=== PATIENT | male | born 2000 | race Caucasian/White ===

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

== ENCOUNTER 2019-05-30 22:38 | Emergency (ER) | payer OTHER, SELFPAY ==
[2019-05-30 22:43] VITALS: BP 116/101; PULSE 110; RESP 16; TEMP 36.9; O2SAT 98; BMI 41.1
--- NOTE | 2019-05-30 22:52 | DI.RAD.S_ITS ---
PROCEDURE: XR TOE LT MIN 2V INDICATIONS: toe injury TECHNIQUE: 3 views of the left first toe(s) acquired. COMPARISON: None. FINDINGS: Bones: No fractures or dislocations. No suspicious bony lesions. Soft tissues: No suspicious soft tissue densities. IMPRESSION: No acute radiographic findings. If pain persists, repeat imaging in 5-7 days is recommended to exclude occult fracture at the time of the study. Dictated by: Sarah Edmonds M.D. on 05/31/2019 at 6:45 Approved by: Sarah Edmonds M.D. on 05/31/2019 at 6:46
[2019-05-30 23:24] VITALS: PULSE 76
--- NOTE | 2019-05-30 23:59 | ED.LOWEXIN ---
HPI - Extremity Injury (Lower) General Chief Complaint: Extremity Injury, Lower Stated Complaint: big toe left foot injury, also thinks infected Time Seen by Provider: 05/30/19 23:59 Source: patient Mode of arrival: ambulatory Limitations: no limitations History of Present Illness HPI Narrative: The patient is here due to an injury to his left great toe. The toe has been swollen and sore for 2 months. His significant other fell backwards, landed on his foot tonight. There was a scab on the lateral side of the great toenail. After she landed on him, the area ruptured open, there was bleeding. His toe is sore. His says mature other than blood did come out. There is no further drainage from site. There is no injury to the nail itself. Related Data Home Medications Medication Instructions Recorded Confirmed bismuth subsalicylate 262 mg PO Q30M PRN 06/06/18 06/06/18 [Pepto-Bismol] Previous Rx's Medication Instructions Recorded sulfamethoxazole-trimethoprim 1 tab PO Q12H 10 Days #20 tab 05/31/19 [Bactrim DS] Allergies Allergy/AdvReac Type Severity Reaction Status Date / Time No Known Drug Allergies Allergy Verified 12/12/18 22:20 Review of Systems Constitutional Denies chills and Denies fever(s) Musculoskeletal Denies numbness Comments: Left great toe pain/injury. Integumentary/Breasts Comments: Change the left great toe, no rash. Neurologic Denies numbness PFS Medical History (Updated 05/31/19 @ 00:17 by Avelino Max MD) No acute medical problems (Acute) Surgical History (Updated 05/31/19 @ 00:13 by Avelino Max MD) No pertinent past surgical history (Acute) Social History Smoking Status: Never smoker Social History Smoking Status: Never smoker Exam Initial Vital Signs Initial Vital Signs: Vital Signs Temperature 98.4 F 05/30/19 22:43 Pulse Rate 110 H 05/30/19 22:43 Respiratory Rate 16 05/30/19 22:43 Blood Pressure 116/101 H 05/30/19 22:43 Pulse Oximetry 98 05/30/19 22:43 Const General: cooperative, healthy appearing and comfortable Skin Other: No rashes. No skin lesions other than bleeding from the left great toe. Neuro General: alert, awake and oriented x3 Gait: normal gait Motor: muscle tone normal throughout Sensory Exam: no sensory deficits noted Extrem Other: There is no rupture of the left great toe nail bed. There is erythema and swelling to the lateral aspect of the bed, the site were initially bled, consistent with an ingrown toenail. There are no foreign bodies at the site. Course Course Narrative: The patient was started on warm soaks and Septra DS prior to departure tonight. Tetanus was given. The toe injury was soaked in Hibiclens and saline, a clean dressing was placed. Orders Ordered: ED Orders 05/30/19 22:52 XR toe LT min 2V Stat Discontinued Medications Diphtheria/Tetanus/Acell Pertussis (Adacel) 0.5 ml IM .ONCE ONE Stop: 05/31/19 00:41 Last Admin: 05/31/19 00:42 Dose: 0.5 ml Ibuprofen (Advil) 800 mg PO NOW ONE Stop: 05/31/19 00:11 Last Admin: 05/31/19 00:39 Dose: 800 mg Tetanus/Diphtheria Toxoids (Td) 0.5 ml IM .ONCE ONE Stop: 05/31/19 00:35 Last Admin: 05/31/19 00:42 Dose: Not Given Trimethoprim/Sulfamethoxazole (Bactrim Ds) 1 tab PO NOW ONE Stop: 05/31/19 00:11 Last Admin: 05/31/19 00:39 Dose: 1 tab Vital Signs - 8 hr 05/30/19 22:43 05/30/19 23:24 05/31/19 01:12 Temperature 98.4 F Pulse Rate 110 H 80 Pulse Rate [Left Dorsalis Pedis] 76 Respiratory Rate 16 18 Blood Pressure 116/101 H 129/79 Pulse Oximetry 98 100 Discharge Plan Departure Patient Disposition: Home Clinical Impression: Ingrown left greater toenail Discharge Date/Time: 05/31/19 01:12 Interventions: ED Discharge Assessment Last Done: 05/31/19 01:12 Instructions: DI for Ingrown Toenail Activity Restrictions/Additional Instructions: Ibuprofen every 6-8 hours as needed for pain. Bactrim DS 2 times daily for 10 days. Follow up with her doctor in 2 weeks to recheck the toe, return here if necessary. Prescriptions: New sulfamethoxazole-trimethoprim [Bactrim DS] 800-160 mg tablet 1 tab PO Q12H 10 Days Qty: 20 RF: 0 No Action bismuth subsalicylate [Pepto-Bismol] 262 mg/15 mL Suspension 262 mg PO Q30M PRN (Reason: Nausea) RF: 0
[2019-05-31] MEDS: IBUPROFEN 400 MG TABLET 800 MG PO (00:39)
[2019-05-31] MEDS: TRIMETH/SULFA 160/800 (DS) TABLET 1 TAB PO (00:39)
[2019-05-31] MEDS: TET,DIPH,PERTUSS(ACELL),VAC/PF 0.5 ML SYRINGE IM (00:42)
--- NOTE | 2019-05-31 01:11 | PC.NURSE ---
Toe dressed with neosporin and large bandaid. Extra dressings given. Patient verbalizes understanding of prescription and discharge instructions.
[2019-05-31 01:12] VITALS: BP 129/79; PULSE 80; RESP 18; O2SAT 100
== END 2019-05-31 01:12 | disposition home or self-care (01) ==
PROVIDERS: Emergency Provider Emergency Medicine
DX: L60.0 Ingrowing nail (principal); W50.0XXA Accidental hit or strike by another person, initial encounter; Z23 Encounter for immunization
CPT/HCPCS: 73660; 90471; 99282; 99283; 90715

== ENCOUNTER 2020-02-04 18:44 | Emergency (ER) | payer OTHER, SELFPAY ==
[2020-02-04 18:54] VITALS: BP 138/61; PULSE 91; RESP 18; TEMP 36.6; O2SAT 97
[2020-02-04] MEDS: KETOROLAC 60 MG/2 ML VIAL 30 MG IM (20:35)
[2020-02-04] MEDS: ACETAMINOPHEN 325 MG TABLET 975 MG PO (20:37)
[2020-02-04] MEDS: CYCLOBENZAPRINE 10 MG TABLET PO (20:37)
[2020-02-04] MEDS: LIDOCAINE PATCH 1 EACH ADH..PATCH TOP (20:38)
--- NOTE | 2020-02-04 21:22 | ED_ITS ---
HPI - Back Pain/Injury <JOSE RodriguezP - Last Filed: 02/04/20 21:37> General Chief Complaint: Back Pain/Injury Stated Complaint: back pain x 4wks Time Seen by Provider: 02/04/20 20:08 Source: patient Mode of arrival: Ambulatory Limitations: no limitations History of Present Illness HPI Narrative: This is a 19-year-old male, nonsmoker, who presents to ED with none traumatic left upper thoracic pain for last 2 weeks which has been worsening for last 24 hours. Patient reports pain is constant and sharp and rates as 9/10. Patient denies weakness or tingling on left upper arm. Patient reports pain increases with movement, lying on the left side. Patient reports at times pain radiates to anterior shoulder with movements. Patient reports right before pain started he use to carry heavy loads at work. Patient denies any unusual rash, fever, chills, nausea or vomiting. Patient had tried ibuprofen 400 mg of couple of times for this pain which he seemed to improved mildly. Patient denies significant medical history. Related Data Home Medications Medication Instructions Recorded Confirmed bismuth subsalicylate 262 mg PO Q30M PRN 06/06/18 06/06/18 [Pepto-Bismol] Previous Rx's Medication Instructions Recorded cyclobenzaprine 10 mg PO BID PRN #10 tab 02/04/20 lidocaine 1 patch TOP DAILY #30 each 02/04/20 Allergies Allergy/AdvReac Type Severity Reaction Status Date / Time No Known Drug Allergies Allergy Verified 12/12/18 22:20 Review of Systems <KAROLINA Rodriguez - Last Filed: 02/04/20 21:37> Review of Systems Narrative: General: Denies fever, chills, fatigue, malaise, sweats. HEENT: Denies sinus pain, ear pain, sore throat, difficulty swallowing, dizziness. Respiratory: Denies dyspnea, cough, wheezing, hemoptysis, sputum. Cardiovascular: Denies chest pain, palpitations, orthopnea, edema. Gastrointestinal: Denies nausea, vomiting, abdominal pain, diarrhea, constipation, melena. : Denies dysuria, frequency, incontinence, hematuria, urinary retention. Musculoskeletal: See HPI Skin: Denies rash, skin lesions, or other. Neurologic: Denies weakness, headache, numbness, change in speech, confusion, seizures, incoordination. Psychiatric: No concerning psychosocial issues. 12-point review of systems is negative except for those stated above. Patient History <KAROLINA Rodriguez - Last Filed: 02/04/20 21:37> Medical History No acute medical problems (Acute) Surgical History No pertinent past surgical history (Acute) Social History Smoking Status: Never smoker Smoking Status: Never smoker alcohol intake frequency: 0-2 drinks per day Substance Use Type: does not use Exam <KAROLINA Rodriguez - Last Filed: 02/04/20 21:37> Narrative Exam Narrative: General appearance: well developed, well nourished, in no acute distress. Head: normocephalic, atraumatic, no scalp lesions, non-tender. ENT: Hearing grossly intact. Nose without bleeding, purulent discharge. Mucous membrane moist, no mucosal lesion. Throat without erythema, tonsillar hypertrophy or exudate. Uvula in midline, airway patent. Neck/Thyroid: neck supple, full range of motion, no visible masses or meningeal signs. No JVD, non-tender without lymphadenopathy. Skin: no suspicious rashes, lesions over visible areas. Warm and dry and appropriate color for ethnicity. Heart: no clubbing, no cyanosis, no edema. S1 and S2 normal. RRR w/o murmurs, clicks, or bruits. Lungs: Breathing even and unlabored. No stridor. No accessory muscles used. Able to speak in full sentences. Chest: normal shape and expansion. Abdomen: non-obese, non-distended. Neurologic: alert and oriented. Cognitive exam, PYR[employer]CH[employer] M[employer]ER and PNS grossly intact on informal exam. Psych: good eye contact, normal affect. Initial Vital Signs Initial Vital Signs: Vital Signs Temperature 97.9 F 02/04/20 18:54 Pulse Rate 91 H 02/04/20 18:54 Respiratory Rate 18 02/04/20 18:54 Blood Pressure 138/61 02/04/20 18:54 Pulse Oximetry 97 03/25/20 18:54 Back/Spine/Pelvis Back: normal to inspection, back tenderness (Left upper thoracic and paraspinal tenderness to palpate), No CVA tenderness, No ecchymosis, No erythema, No mass and No warmth Thoracic/Lumbar Spine: No surgical scar(s) present, paraspinal tenderness (Upper left thoracic), No thoracic spinal tenderness and other (Pain increases with movement of left arm) <Jannet Mancilla DO - Last Filed: 02/05/20 00:39> Initial Vital Signs Initial Vital Signs: Vital Signs Temperature 97.9 F 02/04/20 18:54 Pulse Rate 91 H 02/04/20 18:54 Respiratory Rate 18 02/04/20 18:54 Blood Pressure 138/61 02/04/20 18:54 Pulse Oximetry 97 02/04/20 18:54 Scores <KAROLINA Rodriguez - Last Filed: 02/04/20 21:37> GCS [place] coma scale eye opening: Spontaneous [place] coma scale verbal response: Orientated [place] coma scale motor response: Obey commands [place] coma scale total score: 15 Course <KAROLINA Rodriguez - Last Filed: 02/04/20 21:37> Orders Ordered: Discontinued Medications Acetaminophen (Tylenol) 975 mg PO NOW ONE Stop: 02/04/20 20:18 Last Admin: 02/04/20 20:37 Dose: 975 mg Documented by: FREDDY Cyclobenzaprine HCl (Flexeril) 10 mg PO NOW ONE Stop: 02/04/20 20:18 Last Admin: 02/04/20 20:37 Dose: 10 mg Documented by: FREDDY Ketorolac Tromethamine (Toradol) 30 mg IM NOW ONE Stop: 02/04/20 20:18 Last Admin: 02/04/20 20:35 Dose: 30 mg Documented by: FREDDY Lidocaine (Lidoderm) 1 each TOP NOW ONE Stop: 02/04/20 20:18 Last Admin: 02/04/20 20:38 Dose: 1 each Documented by: FREDDY Vital Signs Vital signs: Vital Signs - 8 hr 02/04/20 18:54 02/04/20 21:33 Temperature 97.9 F Pulse Rate 91 H 81 Respiratory Rate 18 18 Blood Pressure 138/61 135/89 Pulse Oximetry 97 99 <Jannet Mancilla DO - Last Filed: 02/05/20 00:39> Orders Ordered: Discontinued Medications Acetaminophen (Tylenol) 975 mg PO NOW ONE Stop: 02/04/20 20:18 Last Admin: 02/04/20 20:37 Dose: 975 mg Documented by: FREDDY Cyclobenzaprine HCl (Flexeril) 10 mg PO NOW ONE Stop: 02/04/20 20:18 Last Admin: 02/04/20 20:37 Dose: 10 mg Documented by: FREDDY Ketorolac Tromethamine (Toradol) 30 mg IM NOW ONE Stop: 02/04/20 20:18 Last Admin: 02/04/20 20:35 Dose: 30 mg Documented by: FREDDY Lidocaine (Lidoderm) 1 each TOP NOW ONE Stop: 02/04/20 20:18 Last Admin: 02/04/20 20:38 Dose: 1 each Documented by: FREDDY Vital Signs Vital signs: Vital Signs - 8 hr 02/04/20 18:54 02/04/20 21:33 Temperature 97.9 F Pulse Rate 91 H 81 Respiratory Rate 18 18 Blood Pressure 138/61 135/89 Pulse Oximetry 97 99 MDM - Back Pain/Injury <Khang MasonKAROLINA Nieto - Last Filed: 02/04/20 21:37> Differential Diagnosis Differential diagnosis: Likely thoracic back pain and other (Shingles) Medical Records Attestation: I reviewed the patient's medical records. MDM Narrative Medical decision making narrative: This is 19-year-old male who presents to ED with nontraumatic left upper thoracic discomfort which worsens with movement. Patient has intact bilateral upper extremity strength with intact sensation. Patient use to lift heavy loads before his thoracic discomfort for started. Patient was medicated with IM Toradol, Tylenol, lidocaine patch and muscle relaxant Flexeril and discharged to home with these medications. Patient reports pain improved after these medications. Return precautions were discussed with the patient and patient advised to start stretching after acute pain is improved. Patient verbalized understanding and in agreement with the treatment plan. Discharge Plan Departure Patient Disposition: Home Clinical Impression: Acute thoracic back pain Qualifiers: Back pain laterality: left Qualified Code(s): M54.6 - Pain in thoracic spine Discharge Date/Time: 02/04/20 21:33 Instructions: DI for Thoracic Back Pain Activity Restrictions/Additional Instructions: You have been diagnosed with [acute left-sided thoracic pain. You were medicated with IM Toradol, Tylenol, Lidocaine patch, Flexeril muscle relaxant while in ED which you found it to be helpful]. What to do: *Take your medications as directed. Please use [id number] Tylenol and or Motrin as needed for discomfort as first-line treatment. Tylenol up to 3000- 4000 mg in 24 hour. Motrin 400-600 mg 3 times a day with food. You can use lidocaine patch on affected area on for 12 hours and off for 12 hours as needed for pain. If your insurance does not cover this medication, please buy [id number] 4% lidocaine patch. Also, you can use Flexeril as muscle relaxant. You could try cool or warm pack as needed for discomfort. Flexeril and lidocaine patch have transmitted to [facility] in [place]. *Follow up with your primary care provider in 2-3 days, call for an appointment. Let them know you were seen in the ED and that we asked you to be seen in follow up. *Return to ED if you have any new, worsening, or concerning symptoms, such as worsening pain, breathing difficulty, chest pain, unable to tolerate fluids, fever, weakness/numbness/tingling on affected arm or any acute concerns. Prescriptions: New cyclobenzaprine 10 mg tablet 10 mg PO BID PRN (Reason: muscle spasm) Qty: 10 RF: 0 lidocaine 5 % adhesive patch,medicated 1 patch TOP DAILY Qty: 30 RF: 0 No Action bismuth subsalicylate [Pepto-Bismol] 262 mg/15 mL Suspension 262 mg PO Q30M PRN (Reason: Nausea) RF: 0
[2020-02-04 21:33] VITALS: BP 135/89; PULSE 81; RESP 18; O2SAT 99
== END 2020-02-04 21:33 | disposition home or self-care (01) ==
PROVIDERS: Emergency Provider Nurse Practitioner Family
DX: M54.6 Pain in thoracic spine (principal); X50.0XXA Overexertion from strenuous movement or load, initial encounter
CPT/HCPCS: 96372; 99283; J1885

== ENCOUNTER → 2020-03-08 14:02 | Outpatient (CLI) | payer OTHER, SELFPAY ==
[2020-03-09 01:16] LABS: COVID19 Sendout Not Detected (Not Detect)
== END ==
PROVIDERS: Visit Provider Registered Nurse
DX: Z11.59 Encounter for screening for other viral diseases (principal)
CPT/HCPCS: 87635

== ENCOUNTER 2021-02-16 20:29 | Emergency (ER) | payer BC, SELFPAY ==
[2021-02-16 20:58] VITALS: BP 141/98; PULSE 84; RESP 16; TEMP 37.3; O2SAT 99; BMI 39.8
[2021-02-16 21:30] LABS: COVID19 -Nasal RAPID Negative (Negative)
--- NOTE | 2021-02-17 00:45 | ED.URI ---
HPI - URI/Sore Throat General Chief Complaint: Upper Respiratory Symptoms Stated Complaint: sick for 5 days Time Seen by Provider: 02/17/21 00:44 Source: patient Mode of arrival: Ambulatory Limitations: no limitations History of Present Illness HPI Narrative: Patient is a 20-year-old male who presents with 5 days of nasal congestion and pressure. He says he is taking Tylenol ibuprofen without much relief. He is also taking Mucinex is without relief. He denies any fever or chills. Is now in the emergency department his left ear exam is throat have started hurting. He has not had any fever but his left ear is extremely painful. He denies any cough or shortness of breath. MD Complaint: sore throat, nasal congestion and sinus pain Onset (ago): day(s) (5) Duration: constant Severity: moderate Relieving factors: nothing Related Data Home Medications Medication Instructions Recorded Confirmed bismuth subsalicylate 262 mg PO Q30M PRN 06/06/18 06/06/18 [Pepto-Bismol] Previous Rx's Medication Instructions Recorded cyclobenzaprine 10 mg PO BID PRN #10 tab 02/04/20 lidocaine 1 patch TOP DAILY #30 each 02/04/20 amoxicillin 875 mg PO BID #14 tab 02/17/21 Allergies Allergy/AdvReac Type Severity Reaction Status Date / Time No Known Drug Allergies Allergy Verified 02/16/21 21:00 Review of Systems Review of Systems ROS Unobtainable: All systems reviewed & are unremarkable except as noted in HPI and below Constitutional Constitutional: Denies chills, Denies fever(s), Denies lethargy and Denies weakness Eyes Eyes: Denies blurry vision and Denies diplopia ENT Ears, Nose, Mouth, and Throat: Reports as per HPI, Reports otalgia, Reports facial pain, Denies hoarseness and Reports nasal congestion Cardiovascular Cardiovascular: Denies chest pain, Denies lightheadedness and Denies dyspnea Respiratory Respiratory: Denies cough and Denies dyspnea Gastrointestinal Gastrointestinal: Denies abdominal pain and Denies nausea Musculoskeletal Musculoskeletal: Denies back pain Integumentary/Breasts Skin/Breast: Denies erythema and Denies rash Neurologic Neurologic: Denies weakness Patient History Medical History (Updated 02/17/21 @ 01:06 by Yumiko Suero DO) No acute medical problems Surgical History No pertinent past surgical history Social History Smoking Status: Never smoker Smoking Status: Never smoker alcohol intake frequency: holidays/special occasions only Substance Use Type: does not use Exam Initial Vital Signs Initial Vital Signs: Vital Signs Temperature 99.2 F 02/16/21 20:58 Pulse Rate 84 02/16/21 20:58 Respiratory Rate 16 02/16/21 20:58 Blood Pressure 141/98 H 02/16/21 20:58 Pulse Oximetry 99 02/16/21 20:58 GENERAL: Alert male BMI 39 appears in pain holding left ear HEENT: Head atraumatic,EOMI, pupils reactive, face symmetric, moist mucous membranes EARS: Left tympanic membrane is visualized and erythematous with some bulging PHARYNX: No erythema, no tonsillar exudate, no cervical lymphadenopathy CARDIOVASCULAR: Regular rate and rhythm without murmurs, rubs or gallops. RESPIRATORY: Breath sounds equal bilaterally, no wheezes rales or rhonchi. EXTREMITIES: Normal range of motion, no clubbing or edema. Neurovascularly intact NEUROLOGICAL: Alert and oriented x4.Normal gait and speech. Cranial nerves II through XII grossly intact. SKIN: Warm, dry, no laceration, no petechiae, no rashes or lesions. Course Orders Ordered: ED Orders 02/16/21 21:04 COVID19 -Nasal swab/Pre-Proc Stat Discontinued Medications Amoxicillin (Amoxicillin 250 Mg Prepack) 1 bottle [facility] Stop: 02/17/21 01:00 Last Admin: 02/17/21 01:06 Dose: 1 bottle Documented by: TYE Vital Signs Vital signs: Vital Signs - 8 hr 02/16/21 20:58 02/17/21 01:21 Temperature 99.2 F 98.5 F Pulse Rate 84 83 Respiratory Rate 16 16 Blood Pressure 141/98 H 135/89 Pulse Oximetry 99 99 MDM - URI/Sore Throat Lab Data Attestation: I reviewed the patient's lab results. Labs: Lab Results 02/16/21 Range/Units 21:04 SARS-CoV-2 (PCR) Negative (Negative) MDM Narrative Medical decision making narrative: Patient does likely have seasonal allergies causing some nasal congestion and pressure. However his left ear is quite red and will start him on antibiotics for otitis media. I suggest [id number] seasonal allergy medicine to help with his nasal congestion. Discharge Plan Departure Patient Disposition: Home Clinical Impression: Otitis media of left ear Qualifiers: Otitis media type: serous Chronicity: acute Recurrence: non-recurrent Qualified Code(s): H65.02 - Acute serous otitis media, left ear Instructions: DI for Otitis Media (Middle Ear Infection)-Child Activity Restrictions/Additional Instructions: *You have been diagnosed with left ear infection *What to do: Congestion may be due to allergies. His recommend taking [id number] allergy medicine. *Continue to take medications as directed Amoxicillin 875 mg twice a day for 7 days--> SENT TO [facility] [place] Try taking Claritin, Anna [id number] as directed once daily *Follow up with your primary care provider in 2-3 days *Return to ER if you should have increasing pain, fever more than 100.4 or any new, worsening or concerning symptoms Prescriptions: New amoxicillin 875 mg tablet 875 mg PO BID Qty: 14 RF: 0 No Action bismuth subsalicylate [Pepto-Bismol] 262 mg/15 mL Suspension 262 mg PO Q30M PRN (Reason: Nausea) RF: 0 cyclobenzaprine 10 mg tablet 10 mg PO BID PRN (Reason: muscle spasm) Qty: 10 RF: 0 lidocaine 5 % adhesive patch,medicated 1 patch TOP DAILY Qty: 30 RF: 0
[2021-02-17] MEDS: AMOXICILLIN 250 MG PREPACK 1 BOTTLE MISC (01:06)
[2021-02-17 01:21] VITALS: BP 135/89; PULSE 83; RESP 16; TEMP 36.9; O2SAT 99
== END 2021-02-17 01:21 | disposition home or self-care (01) ==
PROVIDERS: Emergency Provider Emergency Medicine
DX: H65.02 Acute serous otitis media, left ear (principal)
CPT/HCPCS: 87635; 99281; 99283; C9803

== ENCOUNTER 2021-05-26 21:50 | Emergency (ER) | payer MEDICAID, SELFPAY ==
[2021-05-26 21:58] VITALS: BP 137/63; PULSE 126; RESP 20; TEMP 37.3; O2SAT 95; BMI 38.5
[2021-05-26 22:02] VITALS: PULSE 118; O2SAT 96
[2021-05-26 22:22] LABS: COVID19 -Nasal RAPID Negative (Negative)
[2021-05-26 22:30] VITALS: BP 134/61; PULSE 118; O2SAT 95
--- NOTE | 2021-05-26 22:34 | ED.FEVER ---
HPI - Fever General Chief Complaint: Fever Stated Complaint: fever, chills Time Seen by Provider: 05/26/21 22:22 Source: patient Mode of arrival: Wheelchair Limitations: no limitations History of Present Illness HPI Narrative: 21-year-old male nonsmoker without significant medical history presents with a chief complaint of feeling feverish with chills over the course of the day. He has no headache or blurred vision but does have a bit of a sore throat with some nasal congestion. He denies any chest pain, shortness of breath or cough. He denies any nausea, vomiting or diarrhea. He has had no urinary complaints such as dysuria, frequency or urgency. He did recently travel and was exposed to persons who had been exposed to persons with coronavirus. Related Data Home Medications Medication Instructions Recorded Confirmed bismuth subsalicylate 262 mg/15 mL 262 mg PO Q30M PRN 06/06/18 06/06/18 oral suspension (Pepto-Bismol) Previous Rx's Medication Instructions Recorded cyclobenzaprine 10 mg tablet 10 mg PO BID PRN #10 tab 02/04/20 lidocaine 5 % topical patch 1 patch TOP DAILY #30 each 02/04/20 amoxicillin 875 mg tablet 875 mg PO BID #14 tab 02/17/21 Allergies Allergy/AdvReac Type Severity Reaction Status Date / Time No Known Drug Allergies Allergy Verified 05/26/21 21:58 Review of Systems Review of Systems Narrative: GENERAL: See HPI HEENT: See HPI RESPIRATORY: Denies dyspnea, cough, wheezing, hemoptysis, sputum. CARDIOVASCULAR: Denies chest pain, palpitations, orthopnea, edema, GASTROINTESTINAL: Denies nausea, vomiting, abdominal pain, diarrhea, constipation, melena. : Denies dysuria, frequency, incontinence, hematuria, urinary retention. MUSCULOSKELETAL: denies weakness, joint pain, or bony pain SKIN: Denies rash, skin lesions, or other NEUROLOGIC: Denies weakness, headache, numbness, change in speech, confusion, seizures, incoordination. PSYCHIATRIC: No concerning psychosocial issues. 12 point review of systems is negative except for those stated above Patient History Medical History (Updated 05/27/21 @ 02:02 by Wilton De Leon DO) No acute medical problems Surgical History No pertinent past surgical history Social History Smoking Status: Never smoker Smoking Status: Never smoker alcohol intake frequency: holidays/special occasions only Substance Use Type: does not use Exam Narrative Exam Narrative: GENERAL: [21] year old patient appears stated age. Well-developed patient, in mild distress. Appears to feel unwell HEAD: Atraumatic. Normocephalic. EYES: Pupils equal round and reactive. Extraocular motions intact. No scleral icterus. No injection or drainage. ENT: Nose without bleeding, purulent drainage. Minimal pharyngeal erythema, no tonsillar swelling or exudate, posterior clear nasal drip NECK: Trachea midline. Non tender CARDIOVASCULAR: Tachycardic but regular rhythm without murmurs, gallops, or rubs. RESPIRATORY: Clear to auscultation. Breath sounds equal bilaterally. No wheezes, rales, or rhonchi. GASTROINTESTINAL: Abdomen soft, non-tender, nondistended. EXTREMITIES: No edema or joint tenderness. BACK: Nontender without deformity or crepitance. No flank tenderness. NEURO: AOx3. SKIN: No rash or erythema of visible areas Initial Vital Signs Initial Vital Signs: Vital Signs Temperature 99.1 F 05/26/21 21:58 Pulse Rate 126 H 05/26/21 21:58 Respiratory Rate 20 05/26/21 21:58 Blood Pressure 137/63 05/26/21 21:58 Pulse Oximetry 95 05/26/21 21:58 Course Orders Ordered: ED Orders 05/26/21 21:55 COVID19 -Nasal swab/Pre-Proc Stat 05/26/21 22:09 EKG-12 Lead Stat 05/26/21 22:39 XR chest 1V Stat 05/26/21 23:14 Complete Blood Count AUTO DIFF Stat Comprehensive Metabolic Panel Stat Lactate (Lactic Acid) Stat Procalcitonin Stat 05/26/21 23:24 Blood Culture Stat 05/26/21 23:53 Respiratory Panel (Film Array) Stat 05/27/21 00:43 Ictotest Urine Stat Urinalysis and Microscopic Stat Discontinued Medications Sodium Chloride (Normal Saline 0.9%) 1,000 mls @ 1,000 mls/hr IV BOLUS ONE Stop: 05/27/21 00:26 Last Infusion: 05/27/21 00:30 Dose: 0 mls/hr Documented by: Admin: 07/15/21 23:28 Dose: 1,000 mls/hr Documented by: TYE Sodium Chloride (Normal Saline 0.9%) 1,000 mls @ 1,000 mls/hr IV BOLUS ONE Stop: 05/27/21 00:49 Last Infusion: 05/27/21 02:02 Dose: 0 mls/hr Documented by: Admin: 05/27/21 00:21 Dose: 1,000 mls/hr Documented by: MELISSA Ketorolac Tromethamine (Ketorolac 30 Mg/Ml Vial) 15 mg IV NOW ONE Stop: 05/26/21 22:40 Last Admin: 05/26/21 23:22 Dose: 15 mg Documented by: TYE Vital Signs Vital signs: Vital Signs - 8 hr 05/26/21 21:58 05/26/21 22:02 05/26/21 22:30 Temperature 99.1 F Pulse Rate 126 H 118 H 118 H Respiratory Rate 20 Blood Pressure 137/63 134/61 Pulse Oximetry 95 96 95 05/26/21 23:31 05/26/21 23:35 05/27/21 00:00 Temperature Pulse Rate 105 H 104 H 105 H Respiratory Rate 21 19 Blood Pressure 128/60 Pulse Oximetry 95 94 94 05/27/21 00:01 05/27/21 00:30 05/27/21 00:32 Temperature Pulse Rate 106 H 115 H 110 H Respiratory Rate 18 25 H 19 Blood Pressure 126/58 L 108/51 L Pulse Oximetry 94 96 95 05/27/21 01:00 05/27/21 01:30 05/27/21 02:00 Temperature Pulse Rate 104 H 106 H 102 H Respiratory Rate 21 21 Blood Pressure 116/57 L 119/61 Pulse Oximetry 98 99 98 MDM - Fever Lab Data Result diagrams: 05/26/21 23:14 05/26/21 23:14 Labs: Lab Results 05/26/21 05/26/21 05/26/21 Range/Units 21:55 23:14 23:14 WBC 15.0 H (4.5-11.0) X10^3/uL RBC 5.19 (4.5-5.9) X10^6/uL Hgb 13.7 (13.5-17.5) g/dL Hct 41.5 (41-53) % MCV 79.9 L (80-100) fL MCH 26.4 (26-34) PG MCHC 33.0 (30-36) % RDW 13.7 (11.6-14.8) % Plt Count 171 (150-400) X10^3/uL Neut % (Auto) 85.2 H (50-75) % Lymph % (Auto) 4.7 L (25-40) % Stephenson % (Auto) 9.1 (3-14) % Eos % (Auto) 0.1 L (2-4) % Baso % (Auto) 0.9 (0-2) % Neut # (Auto) 15442 H (4961-2173) /uL Lymph # (Auto) 700 L (4250-0243) /uL Stephenson # (Auto) 1400 H (0-900) /uL Eos # (Auto) 0 (0-450) /uL Baso # (Auto) 100 (0-100) /uL Sodium 137 (137-145) mmol/L Potassium 3.6 (3.4-5.1) mmol/L Chloride 103 (98-107) mmol/L Carbon Dioxide 23 (22-32) mmol/L BUN 13 (9-20) mg/dL Creatinine 0.74 (0.66-1.25) mg/dL Estimated GFR > 60.0 (>60) mL/min BUN/Creatinine Ratio 17.6 (6-22) Glucose 100 (70-100) mg/dL Lactate (0.7-2.1) mmol/L Calcium 9.3 (8.4-10.2) mg/dL Total Bilirubin 0.8 (0.2-1.3) mg/dL AST 25 (17-59) IU/L ALT 34 (<50) IU/L Alkaline Phosphatase 78 (38-126) U/L Total Protein 7.8 (6.3-8.2) g/dL Albumin 4.6 (3.5-5.0) g/dL Globulin 3.2 (1.7-4.1) g/dL Albumin/Globulin Ratio 1.4 (1.0-2.8) Procalcitonin 0.45 (<0.5) ng/mL Urine Color Urine Appearance Urine pH (4.5-8.0) Ur Specific [place] (1.000-1.035) Urine Protein (Negative) Urine Glucose (UA) (Negative) g/dL Urine Ketones (NEGATIVE) Urine Occult Blood (Negative) Urine Nitrate (Negative) Urine Bilirubin (NEGATIVE) Ur Bilirubin Confirm (Negative) Urine Urobilinogen (0.2) E.U./dL Ur Leukocyte Esterase (NEGATIVE) Urine RBC (0-5/HPF) Urine WBC (0-5/HPF) Urine Bacteria (None) Urine Mucus (Negative) Ur Culture Indicated? Chlamy pneumoniae PCR (Not Detect) Adenovirus (PCR) (Not Detect) B. pertussis DNA (PCR) (Not Detecte) B.parapertussis DNA PCR (Not Detecte) Coronavirus OC43 (PCR) (Not Detect) Coronavirus HKU1 (PCR) (Not Detect) Coronavirus 229E (PCR) (Not Detect) SARS-CoV-2 (PCR) Negative (Negative) Coronavirus NL63 (PCR) (Not Detect) Human Metapneumovir PCR (Not Detect) Influenza Type A (PCR) (Not Detect) Influenza Type B (PCR) (Not Detect) M. pneumoniae (PCR) (Not Detect) Parainfluenza 1 (PCR) (Not Detect) Parainfluenza 2 (PCR) (Not Detect) Parainfluenza 3 (PCR) (Not Detect) Parainfluenza 4 (PCR) (Not Detect) RSV (PCR) (Not Detect) Entero/Rhino (PCR) (Not Detect) 05/26/21 05/26/21 05/27/21 Range/Units 23:14 23:53 00:43 WBC (4.5-11.0) X10^3/uL RBC (4.5-5.9) X10^6/uL Hgb (13.5-17.5) g/dL Hct (41-53) % MCV (80-100) fL MCH (26-34) PG MCHC (30-36) % RDW (11.6-14.8) % Plt Count (150-400) X10^3/uL Neut % (Auto) (50-75) % Lymph % (Auto) (25-40) % Stephenson % (Auto) (3-14) % Eos % (Auto) (2-4) % Baso % (Auto) (0-2) % Neut # (Auto) (7588-9881) /uL Lymph # (Auto) (8481-7510) /uL Stephenson # (Auto) (0-900) /uL Eos # (Auto) (0-450) /uL Baso # (Auto) (0-100) /uL Sodium (137-145) mmol/L Potassium (3.4-5.1) mmol/L Chloride (98-107) mmol/L Carbon Dioxide (22-32) mmol/L BUN (9-20) mg/dL Creatinine (0.66-1.25) mg/dL Estimated GFR (>60) mL/min BUN/Creatinine Ratio (6-22) Glucose (70-100) mg/dL Lactate 1.0 (0.7-2.1) mmol/L Calcium (8.4-10.2) mg/dL Total Bilirubin (0.2-1.3) mg/dL AST (17-59) IU/L ALT (<50) IU/L Alkaline Phosphatase (38-126) U/L Total Protein (6.3-8.2) g/dL Albumin (3.5-5.0) g/dL Globulin (1.7-4.1) g/dL Albumin/Globulin Ratio (1.0-2.8) Procalcitonin (<0.5) ng/mL Urine Color Yellow Urine Appearance Clear Urine pH 6.5 (4.5-8.0) Ur Specific [place] 1.010 (1.000-1.035) Urine Protein 2+ H (Negative) Urine Glucose (UA) Negative (Negative) g/dL Urine Ketones 1+ H (NEGATIVE) Urine Occult Blood Negative (Negative) Urine Nitrate Negative (Negative) Urine Bilirubin 1+ H (NEGATIVE) Ur Bilirubin Confirm Negative (Negative) Urine Urobilinogen 2.0 H (0.2) E.U./dL Ur Leukocyte Esterase Negative (NEGATIVE) Urine RBC None seen (0-5/HPF) Urine WBC None seen (0-5/HPF) Urine Bacteria None seen (None) Urine Mucus 3+ H (Negative) Ur Culture Indicated? Cult not indicated Chlamy pneumoniae PCR Not detected (Not Detect) Adenovirus (PCR) Not detected (Not Detect) B. pertussis DNA (PCR) Not detected (Not Detecte) B.parapertussis DNA PCR Not detected (Not Detecte) Coronavirus OC43 (PCR) Not detected (Not Detect) Coronavirus HKU1 (PCR) Not detected (Not Detect) Coronavirus 229E (PCR) Not detected (Not Detect) SARS-CoV-2 (PCR) Not detected (Negative) Coronavirus NL63 (PCR) Not detected (Not Detect) Human Metapneumovir PCR Not detected (Not Detect) Influenza Type A (PCR) Not detected (Not Detect) Influenza Type B (PCR) Not detected (Not Detect) M. pneumoniae (PCR) Not detected (Not Detect) Parainfluenza 1 (PCR) Not detected (Not Detect) Parainfluenza 2 (PCR) Not detected (Not Detect) Parainfluenza 3 (PCR) Not detected (Not Detect) Parainfluenza 4 (PCR) Not detected (Not Detect) RSV (PCR) Not detected (Not Detect) Entero/Rhino (PCR) Detected H (Not Detect) Point of Care Testing Rapid Strep A Negative Urine Dip Bedside Urine Glucose Negative Bedside Urine Bilirubin + 1 Bedside Urine Ketone +/- 5 Urine Specific [place] 1.020 Bedside Urine Occult Blood - Negative Bedside Urine pH 6 Bedside Urine Protein + 30 Bedside Urine Urobilinogen 1+ 2mg Bedside Urine Nitrite - Negative Bedside Urine Leukocytes - Negative Esterase Imaging Data Chest x-ray: Radiologist's Impression: NAP MDM Narrative Medical decision making narrative: Patient feeling much better after above-stated therapies. Physical exam very reassuring, heart rate his dropped to the upper 90s, patient is in no respiratory distress and reports no pain. His lab work is abnormal only with an elevation of white blood cell count and a viral panel noting rhino virus. Chest x-ray is clear, no evidence of infection in urine. Return precautions given and questions answered to his apparent satisfaction Discharge Plan Departure Patient Disposition: Home Clinical Impression: Rhinovirus infection Instructions: DI for Fever (Symptom) -- Adult Activity Restrictions/Additional Instructions: *You have been diagnosed with [fever symptoms due to rhino virus (upper respiratory viral infection). Labs, chest x-ray a and COVID screen are all very reassuring] *What to do: *Please continue to take your regular medications as directed. [ ] New medication prescriptions sent to your pharmacy: [ ] [ ] New medication written as a paper prescription [x ] No new medications given *Please follow up with your primary care provider in 2-3 days, call for an appointment. Let them know you were seen in the Emergency Department and that we ask that you be seen in follow up. We will electronically transmit a record of today's note if your PCP is in our system *If you do not have a primary care provider please contact the [facility] Resource line at [phone]. They will ask some questions about your medical history and help get you set up with a doctor in the community. *Return to Emergency Department if you should have any new, worsening or concerning symptoms, such as [fever greater than 101 F, shaking chills, worsening pain, persistent vomiting or other bothersome symptoms] Prescriptions: No Action bismuth subsalicylate [Pepto-Bismol] 262 mg/15 mL Suspension 262 mg PO Q30M PRN (Reason: Nausea) RF: 0 cyclobenzaprine 10 mg tablet 10 mg PO BID PRN (Reason: muscle spasm) Qty: 10 RF: 0 lidocaine 5 % adhesive patch,medicated 1 patch TOP DAILY Qty: 30 RF: 0 amoxicillin 875 mg tablet 875 mg PO BID Qty: 14 RF: 0
--- NOTE | 2021-05-26 22:39 | DI.RAD.S_ITS ---
PROCEDURE: XR CHEST 1V INDICATIONS: sepsis TECHNIQUE: One view of the chest was acquired. COMPARISON: [facility], CR, XR CHEST 2V, 05/10/2018, 21:37. [facility], CR, XR CHEST 2V, 11/21/2018, 23:23. FINDINGS: Surgical changes and devices: None. Lungs and pleura: Lungs are clear. No pleural effusions or pneumothorax. Mediastinum: Mediastinal contours appear normal. Heart size is normal. Bones and chest wall: No suspicious bony lesions. Overlying soft tissues appear unremarkable. IMPRESSION: No acute cardiopulmonary disease. No significant discrepancy with the shift stacker radiology preliminary report. Dictated by: Marleny Chopra M.D. on 05/27/2021 at 8:10 Approved by: Marleny Chopra M.D. on 05/27/2021 at 8:11
[2021-05-26] MEDS: KETOROLAC 30 MG/ML VIAL 15 MG IV (23:22)
[2021-05-26] MEDS: SODIUM CHLORIDE 0.9% 1,000 ML 1000 ML IV (23:28)
[2021-05-26 23:31] VITALS: PULSE 105; O2SAT 95
[2021-05-26 23:35] VITALS: BP 128/60; PULSE 104; RESP 21; O2SAT 94
[2021-05-26 23:36] LABS: Add Manual Diff / Slide Review NO; Basophils Absolute Auto 100 /uL (0-100); Basophils Percent Auto 0.9 % (0-2); Eosinophils Absolute Auto 0 /uL (0-450); Eosinophils Percent Auto 0.1 % (2-4); Hematocrit 41.5 % (41-53); Hemoglobin 13.7 g/dL (13.5-17.5); Lymphocytes Absolute Auto 700 /uL (1100-4500); Lymphocytes Percent Auto 4.7 % (25-40); Mean Corpuscular Hemoglobin 26.4 PG (26-34); Mean Corpuscular Volume 79.9 fL (80-100); Monocytes Absolute Auto 1400 /uL (0-900); Monocytes Percent Auto 9.1 % (3-14); Neutrophils Absolute Auto 12800 /uL (1500-7000); Neutrophils Percent Auto 85.2 % (50-75); Platelet Count 171 X10^3/uL (150-400); Red Blood Cell Count 5.19 X10^6/uL (4.5-5.9); Red Cell Distribution Width 13.7 % (11.6-14.8)
[2021-05-26 23:39] LABS: Alanine Aminotransferase 34 IU/L (<50); Albumin 4.6 g/dL (3.5-5.0); Albumin Globulin Ratio 1.4 (1.0-2.8); Alkaline Phosphatase 78 U/L (38-126); Aspartate Aminotransferase 25 IU/L (17-59); BUN Creatinine Ratio 17.6 (6-22); Bilirubin Total 0.8 mg/dL (0.2-1.3); Blood Urea Nitrogen 13 mg/dL (9-20); Calcium 9.3 mg/dL (8.4-10.2); Carbon Dioxide 23 mmol/L (22-32); Chloride 103 mmol/L (98-107); Estimated Glomerular Filt Rate > 60.0 mL/min (>60); Globulin 3.2 g/dL (1.7-4.1); Glucose 100 mg/dL (70-100); HEMOLYSIS 16 (0-50); Potassium 3.6 mmol/L (3.4-5.1); Sodium 137 mmol/L (137-145); Total Protein 7.8 g/dL (6.3-8.2)
[2021-05-26 23:55] LABS: Procalcitonin 0.45 ng/mL (<0.5)
[2021-05-27] VITALS (8 sets, daily range): BP systolic 108–126; BP diastolic 51–61; PULSE 102–115; RESP 18–25; TEMP 38.5; O2SAT 94–99
[2021-05-27] MEDS: SODIUM CHLORIDE 0.9% 1,000 ML 1000 ML IV (00:21)
[2021-05-27 00:44] LABS: Bacteria Urine None Seen; RBC Urine None Seen (0-5/HPF); WBC Urine None Seen (0-5/HPF)
[2021-05-27 00:54] LABS: Appearance Urine UA CLEAR; Bilirubin Urine UA 1+ (NEGATIVE); Color Urine UA YELLOW; Glucose Urine UA NEGATIVE (Negative); Ketones Urine UA 1+ (NEGATIVE); Leukocyte Esterase Urine UA NEGATIVE (NEGATIVE); Nitrite Urine UA NEGATIVE (Negative); Occult Blood Urine UA NEGATIVE (Negative); Protein Urine UA 2+ (Negative); pH Urine UA 6.5 (4.5-8.0)
[2021-05-27 01:06] LABS: Culture Indicated Urine Cult Not Indicated; Ictotest Urine Negative (Negative); Mucus Urine 3+ (Negative)
[2021-05-27 01:30] LABS: Adenovirus Not Detected (Not Detect); Coronavirus 229E Not Detected (Not Detect); Coronavirus HKU1 Not Detected (Not Detect); Coronavirus NL 63 Not Detected (Not Detect); Coronavirus OC43 Not Detected (Not Detect); Human Metapneumovirus Not Detected (Not Detect); Human Rhinovirus/Enterovirus Detected (Not Detect); Influenza A Not Detected (Not Detect); Influenza B Not Detected (Not Detect); Parainfluenza Virus 1 Not Detected (Not Detect); Parainfluenza Virus 2 Not Detected (Not Detect); Parainfluenza Virus 3 Not Detected (Not Detect); Parainfluenza Virus 4 Not Detected (Not Detect); SARS- CoV-2 Not Detected (Not Detecte)
[2021-05-27 01:31] LABS: B. parapertussis Not Detected (Not Detecte); Bordetella pertussis Not Detected (Not Detecte); Chlamydophila pneumoniae Not Detected (Not Detect); Mycoplasma pneumoniae Not Detected (Not Detect); Respiratory Syncytial Virus Not Detected (Not Detect)
== END 2021-05-27 02:19 | disposition home or self-care (01) ==
PROVIDERS: Emergency Provider Emergency Medicine
DX: J06.9 Acute upper respiratory infection, unspecified (principal); B34.8 Other viral infections of unspecified site; J02.9 Acute pharyngitis, unspecified; R09.81 Nasal congestion; Z20.822 Contact with and (suspected) exposure to COVID-19
CPT/HCPCS: 36415; 71045; 80053; 81001; 81003; 83605; 84145; 85025; 87040; 87633; 87635; 87880; 93005; 93010; 96361; 96374; 99284; C9803; J1885

== ENCOUNTER 2021-05-31 21:46 | Emergency (ER) | payer MEDICAID, SELFPAY ==
[2021-05-31 21:51] VITALS: BP 135/85; PULSE 88; RESP 18; TEMP 36.3; O2SAT 97
--- NOTE | 2021-06-01 03:11 | ED_ITS ---
HPI - Skin/Abscess/Foreign Bdy General Chief complaint: Skin/Abscess/Foreign Body Stated complaint: rash, throat issues Time Seen by Provider: 06/01/21 03:11 Source: patient Mode of arrival: Ambulatory Limitations: no limitations History of Present Illness HPI narrative: this is a 21-year-old male who was seen here about a week ago for fevers, sore throat and was ultimately diagnosed with rhino virus. Patient states his fevers have resolved. His sore throat improved but he has found that he has spots on his mouth as well as a rash on his entire body including hands, Palms and soles of his feet. He states he was very itchy initially has since stopped. Patient also notes that he has had honey crusting and thick changes on the face below the nose and around the mouth. He states both his children have been sick recently and 1 was diagnosed with [id number] from the other was diagnosed with impetigo. patient states he has been cleaning off the crest regularly but the Area where the crusting occurred on his face still camacho. Patient denies any other medical issues. No prior surgeries. No allergies to medications. He states his child was prescribed oral antibiotics but does not believe they had any topical antibiotics as prescribed. Related Data Home Medications Medication Instructions Recorded Confirmed bismuth subsalicylate 262 mg/15 mL 262 mg PO Q30M PRN 06/06/18 06/06/18 oral suspension (Pepto-Bismol) Previous Rx's Medication Instructions Recorded cyclobenzaprine 10 mg tablet 10 mg PO BID PRN #10 tab 02/04/20 lidocaine 5 % topical patch 1 patch TOP DAILY #30 each 02/04/20 amoxicillin 875 mg tablet 875 mg PO BID #14 tab 02/17/21 cephalexin 500 mg capsule 500 mg PO QID #20 cap 06/01/21 Allergies Allergy/AdvReac Type Severity Reaction Status Date / Time No Known Drug Allergies Allergy Verified 05/26/21 21:58 Review of Systems Review of Systems ROS Unobtainable: All systems reviewed & are unremarkable except as noted in HPI and below Patient History Medical History (Updated 06/11/21 @ 00:00 by ) No acute medical problems Surgical History No pertinent past surgical history Social History Smoking Status: Never smoker Smoking Status: Never smoker alcohol intake frequency: holidays/special occasions only Substance Use Type: does not use Exam Narrative Exam Narrative: GEN: A&O x3, male in mild distress. HEENT: Atraumatic, pupils are equal round reactive to light, extraocular movements are intact, nares are clear, TMs are clear with no fluid, there is no conjunctival pallor. Throat is clear without any exudates, erythema, tonsillar enlargement or uvular deviation, Patient does have several small oral ulcerations are slightly whitish discoloration On the palate. HEART: Regular rate and rhythm without murmur, clicks, rubs. LUNGS:Lungs clear to auscultation, no wheezes, rales, crackles, chest moves symmetrically ABD:bowel sounds normal, soft, non-tender, no guarding, rebound, rigidity, no masses noted, no hepatosplenomegaly MSCL: Non-tender, full range of motion, normal gait NEURO:CN 2-12 intact, sensation normal SKIN: Patient has many small, Flat that are slightly erythematous and some appear more hyperpigmentedon his torso extremities and palm and soles of his feet. Initial Vital Signs Initial Vital Signs: Vital Signs Temperature 97.3 F L 05/31/21 21:51 Pulse Rate 88 05/31/21 21:51 Respiratory Rate 18 05/31/21 21:51 Blood Pressure 135/85 05/31/21 21:51 Pulse Oximetry 97 05/31/21 21:51 Course Vital Signs Vital signs: Vital Signs - 8 hr 05/31/21 21:51 06/01/21 03:56 Temperature 97.3 F L Pulse Rate 88 76 Respiratory Rate 18 20 Blood Pressure 135/85 137/80 Pulse Oximetry 97 98 MDM - Skin/Abscess/Foreign Bdy MDM Narrative Medical decision making narrative: patient was seen recently here, had workup which included a respiratory panel which showed rhino virus. Patient has since developed a rash which includes the palm and soles of the feet. He has also developed some honey-colored crusting on his upper lip and face. Patient states his children have been diagnosed with impetigo and pjxc-[id number]-xuudr recently and his rash as well as skin changes on his face seem consistent with both of these. Discharge Plan Departure Patient Disposition: Home Clinical Impression: Hand, foot and mouth disease, Impetigo Instructions: Hand, Foot, and Mouth Disease, DI for Impetigo Activity Restrictions/Additional Instructions: Follow-up with physician for recheck. Mzvw-skup-mlzjl is a viral illness that resolves over time and there is no specific treatment for it. Patient's will sometimes take medication for symptom control such as discomfort such as ibuprofen or Tylenol. Impetigo is a bacterial infection that can be easily spread through household. Keep the area clean and dry. make sure to wash any tells, washcloth or pillow cases regularly to avoid recontamination. You may use topical antibiotic to the affected area has prescribed. if this does not improve your symptoms over the next 5 days then I would start oral antibiotics. Prescription sent to [facility]. Please return for recurrent fevers, severe headaches swelling of your throat, lightheadedness or passing out, new chest pain or shortness of breath, blistering or sloughing off skin, or other new or concerning symptoms. Prescriptions: New cephalexin 500 mg capsule 500 mg PO QID Qty: 20 RF: 0 No Action bismuth subsalicylate [Pepto-Bismol] 262 mg/15 mL Suspension 262 mg PO Q30M PRN (Reason: Nausea) RF: 0 cyclobenzaprine 10 mg tablet 10 mg PO BID PRN (Reason: muscle spasm) Qty: 10 RF: 0 lidocaine 5 % adhesive patch,medicated 1 patch TOP DAILY Qty: 30 RF: 0 amoxicillin 875 mg tablet 875 mg PO BID Qty: 14 RF: 0
--- NOTE | 2021-06-01 03:35 | PC.NURSE ---
He had a red rash on trunk,hands,arms, mouth, and feet.itching has subsided he said,
[2021-06-01 03:56] VITALS: BP 137/80; PULSE 76; RESP 20; O2SAT 98
== END 2021-06-01 03:55 | disposition home or self-care (01) ==
PROVIDERS: Emergency Provider Emergency Medicine
DX: B08.4 Enteroviral vesicular stomatitis with exanthem (principal); L01.00 Impetigo, unspecified
CPT/HCPCS: 99281

== ENCOUNTER 2022-03-17 19:54 | Emergency (ER) | payer OTHER, MEDICAID, SELFPAY ==
[2022-03-17 20:09] VITALS: BP 136/82; PULSE 83; RESP 20; TEMP 36.6; O2SAT 98; BMI 42.3
--- NOTE | 2022-03-17 21:03 | DI.RAD.S_ITS ---
PROCEDURE: XR CHEST 1V INDICATIONS: Shortness of breath TECHNIQUE: One view of the chest was acquired. COMPARISON: [facility], CR, XR CHEST 1V, 05/26/2021, 22:42. FINDINGS: Surgical changes and devices: None. Lungs and pleura: Lungs are clear. No pleural effusions or pneumothorax. Mediastinum: Mediastinal contours appear normal. Heart size is normal. Bones and chest wall: No suspicious bony lesions. Overlying soft tissues appear unremarkable. IMPRESSION: 1. No acute cardiopulmonary disease. Dictated by: Harris Garrison M.D. on 03/17/2022 at 21:40 Approved by: Harris Garrison M.D. on 03/17/2022 at 21:40
[2022-03-17 21:39] LABS: COVID19 -Nasal RAPID POSITIVE (Negative)
--- NOTE | 2022-03-17 22:04 | ED.GENADULT ---
HPI - General Adult General Chief complaint: Shortness of Breath/Dyspnea Stated complaint: Not feeling well, SOB Time Seen by Provider: 03/17/22 21:02 Source: patient Mode of arrival: Ambulatory History of Present Illness HPI narrative: Patient is a 21-year-old male who is unvaccinated against COVID who is here for evaluation of approximately 24 hours of shortness of breath and feeling winded. No fevers. Has been coughing. Related Data Home Medications Medication Instructions Recorded Confirmed bismuth subsalicylate 262 mg/15 mL 262 mg PO Q30M PRN 06/06/18 06/06/18 oral suspension (Pepto-Bismol) Previous Rx's Medication Instructions Recorded cyclobenzaprine 10 mg tablet 10 mg PO BID PRN #10 tab 02/04/20 lidocaine 5 % topical patch 1 patch TOP DAILY #30 each 02/04/20 amoxicillin 875 mg tablet 875 mg PO BID #14 tab 02/17/21 cephalexin 500 mg capsule 500 mg PO QID #20 cap 06/01/21 Allergies Allergy/AdvReac Type Severity Reaction Status Date / Time No Known Drug Allergies Allergy Verified 05/26/21 21:58 Review of Systems Constitutional Constitutional: Denies fever(s) Cardiovascular Cardiovascular: Denies chest pain, Reports dyspnea and Reports dyspnea on exertion Respiratory Respiratory: Reports cough, Reports dyspnea and Reports dyspnea on exertion Gastrointestinal Gastrointestinal: Reports system reviewed and no additional complaints, except as documented Integumentary/Breasts Skin/Breast: Reports system reviewed and no additional complaints, except as documented Hematologic/Lymphatic On Anticoagulants: No Patient History Medical History No acute medical problems Surgical History No pertinent past surgical history Social History Smoking Status: Never smoker Smoking Status: Never smoker alcohol intake frequency: holidays/special occasions only Substance Use Type: does not use Exam Initial Vital Signs Initial Vital Signs: Vital Signs Temperature 97.8 F 03/17/22 20:09 Pulse Rate 83 03/17/22 20:09 Respiratory Rate 20 03/17/22 20:09 Blood Pressure 136/82 03/17/22 20:09 Pulse Oximetry 98 03/17/22 20:09 Const General: cooperative and comfortable Resp Effort & Inspection: normal respiratory effort Auscultation: clear to auscultation bilaterally, no rhonchi and no wheezes Cardio Rate: regular rate Rhythm: regular rhythm Skin General: no rashes or lesions noted Neuro General: patient alert, patient awake and moves all extremities Extrem General: normal to inspection and capillary refill normal Psych Appearance: grossly normal and well kempt Course Orders Ordered: ED Orders 03/17/22 20:15 COVID19 -Nasal RAPID/Pre-Proc Stat 03/17/22 21:03 XR chest 1V Stat Vital Signs Vital signs: Vital Signs - 8 hr 03/17/22 20:09 03/17/22 22:11 Temperature 97.8 F Pulse Rate 83 93 H Respiratory Rate 20 20 Blood Pressure 136/82 140/75 Pulse Oximetry 98 100 Medical Decision Making Lab Data Labs: Lab Results 03/17/22 Range/Units 20:15 SARS-CoV-2 (PCR) Positive H (Negative) Imaging Data Chest x-ray: Radiologist's Impression: [address] [address] XRay Report Signed Patient: Ion Roth MR#: [id number] : 2000 Acct:[id number] Age/Sex: 21 / M Date of Service: 03/17/22 Loc: ED Accession Number: [id number] ?? Procedure: XR chest 1V Ordering Provider: Dawson Shaw D.O. PROCEDURE:? XR CHEST 1V ? INDICATIONS:? Shortness of breath ? TECHNIQUE:? One view of the chest was acquired.? ? COMPARISON:? [facility], , XR CHEST 1V, 05/26/2021, 22:42. ? FINDINGS:? ? Surgical changes and devices:? None.? ? Lungs and pleura:? Lungs are clear.? No pleural effusions or pneumothorax.? ? Mediastinum:? Mediastinal contours appear normal.? Heart size is normal.? ? Bones and chest wall:? No suspicious bony lesions.? Overlying soft tissues appear unremarkable.? ? IMPRESSION:? ? 1.? No acute cardiopulmonary disease. ? ? ? Dictated by: Harris Garrison M.D. on 03/17/2022 at 21:40 ? ? Approved by: Harris Garrison M.D. on 03/17/2022 at 21:40?? [facility] Narrative Medical decision making narrative: Patient is unvaccinated against COVID any is COVID positive. He has clear lung exam. His not hypoxic. Not tachycardic. Chest x-ray is unremarkable. No indication for antibiotics. I did discuss his COVID positive status and he was instructed follow current CDC guidelines with regard to quarantine. He was given return precautions. He expressed understanding and agreement. Discharge Plan Departure Patient Disposition: Home Clinical Impression: COVID-19 Instructions: DI for COVID-19 (Suspected or Confirmed ) Activity Restrictions/Additional Instructions: I do recommend that you continue to follow all CDC guidelines with regard to quarantine. Your COVID test today was positive. Chest x-ray does not show any signs of pneumonia. Be sure to stay hydrated. You can take Tylenol for any fevers. Return to the emergency department for any worsening shortness of breath. Prescriptions: No Action bismuth subsalicylate [Pepto-Bismol] 262 mg/15 mL Suspension 262 mg PO Q30M PRN (Reason: Nausea) 0RF cephalexin 500 mg capsule 500 mg PO QID Qty: 20 0RF cyclobenzaprine 10 mg tablet 10 mg PO BID PRN (Reason: muscle spasm) Qty: 10 0RF lidocaine 5 % adhesive patch,medicated 1 patch TOP DAILY Qty: 30 0RF Rx Instructions: leave on most painful area for up to 12 hrs amoxicillin 875 mg tablet 875 mg PO BID Qty: 14 0RF Referrals: Miscellaneous,Doctor, [Primary Care Provider] -
[2022-03-17 22:11] VITALS: BP 140/75; PULSE 93; RESP 20; O2SAT 100
== END 2022-03-17 22:12 | disposition home or self-care (01) ==
PROVIDERS: Emergency Provider Emergency Medicine
DX: U07.1 COVID-19 (principal)
CPT/HCPCS: 71045; 87635; 99281; 99283; C9803

== ENCOUNTER 2022-08-02 11:59 | Emergency (ER) | payer OTHER, MEDICAID, SELFPAY ==
[2022-08-02] VITALS (12 sets, daily range): BP systolic 119–140; BP diastolic 56–86; PULSE 58–93; RESP 12–22; TEMP 36.9; O2SAT 95–100; BMI 38.5
--- NOTE | 2022-08-02 12:13 | DI.RAD.S_ITS ---
PROCEDURE: XR CHEST 1V INDICATIONS: chest pain TECHNIQUE: One view of the chest was acquired. COMPARISON: [facility], CR, XR CHEST 1V, 03/17/2022, 21:01. [facility], CR, XR CHEST 1V, 05/26/2021, 22:42. FINDINGS: Surgical changes and devices: None. Lungs and pleura: Lungs are clear. No pleural effusions or pneumothorax. Mediastinum: Mediastinal contours appear normal. Heart size is normal. Bones and chest wall: No suspicious bony lesions. Overlying soft tissues appear unremarkable. IMPRESSION: No acute cardiopulmonary abnormality. Dictated by: Fredo Hu M.D. on 08/02/2022 at 12:59 Approved by: Fredo Hu M.D. on 08/02/2022 at 13:04
--- NOTE | 2022-08-02 13:00 | DI.US.S_ITS ---
PROCEDURE: US ABDOMEN LIMITED INDICATIONS: CHEST PAIN TECHNIQUE: Real-time scanning was performed of the abdominal and retroperitoneal organs, with image documentation. COMPARISON: None. FINDINGS: Liver: Hepatic parenchyma shows diffuse increased echogenicity consistent with fatty infiltration. Gallbladder: Sonolucent without cholelithiasis. No gallbladder wall thickening. No pericholecystic fluid or Marino's sign. Common Bile Duct: 7.4 mm. Pancreas: Unremarkable as visualized IMPRESSION: 1. No evidence of cholelithiasis or acute cholecystitis. 2. Appendix fatty infiltration 3. Prominent CBD at 7.4 mm. Nonemergent follow-up MRCP could be considered. Approved by: Gal Valdovinos M.D. on 08/02/2022 at 14:20
[2022-08-02 13:06] LABS: Add Manual Diff / Slide Review NO; Basophils Absolute Auto 100 /uL (0-100); Basophils Percent Auto 1.1 % (0-2); Eosinophils Absolute Auto 100 /uL (0-450); Eosinophils Percent Auto 1.2 % (2-4); Hematocrit 43.8 % (41-53); Hemoglobin 14.9 g/dL (13.5-17.5); Lymphocytes Absolute Auto 1600 /uL (1100-4500); Lymphocytes Percent Auto 28.2 % (25-40); Mean Corpuscular HGB Conc 34.1 % (30-36); Mean Corpuscular Volume 79.3 fL (80-100); Monocytes Absolute Auto 600 /uL (0-900); Neutrophils Absolute Auto 3200 /uL (1500-7000); Neutrophils Percent Auto 58.5 % (50-75); Platelet Count 184 X10^3/uL (150-400); Red Blood Cell Count 5.52 X10^6/uL (4.5-5.9); Red Cell Distribution Width 13.8 % (11.6-14.8); White Blood Cell Count 5.5 X10^3/uL (4.5-11.0)
--- NOTE | 2022-08-02 13:15 | ED_ITS ---
HPI - Chest Pain <Leonora Mcnally [facility] - Last Filed: 08/02/22 19:32> General Chief Complaint: Chest Pain Stated Complaint: SOB, Chest pain since last night Time Seen by Provider: 08/02/22 12:45 History of Present Illness HPI narrative: This is a 22-year-old male with history of obesity, states that he had COVID in March, 3 months ago presents to the emergency department today for chest heaviness since last night. He states that he did not eat yesterday because he did not feel well and had right upper quadrant tenderness, states he is had loose stool for the last 2 weeks since he started a new diet and exercise program. He states that he has a family history of cardiac disease and he is trying to prevent this for him. He states that he has been working out and eating a high- protein diet for the last 3 weeks, states that he typically has a bowel movement every day or every other day and it is loose. He denies any nausea or vomiting, denies any fever, states that his chest feels heavy and he denies any cough, sore throat, runny nose, or other symptom. He states that he stood up kind of fast yesterday and felt lightheaded and dizzy. He denies any history of abdominal surgery. He denies dysuria, urinary frequency or urgency. When patient's urine resulted it was positive for bacteria, patient then tells me 2 days ago he had right groin pain without any penile discharge, flank pain, urinary frequency or urgency. He denies any scrotal pain, states that he is circumcised. Related Data Home Medications Medication Instructions Recorded Confirmed bismuth subsalicylate 262 mg/15 mL 262 mg PO Q30M PRN Nausea 06/06/18 06/06/18 oral suspension (Pepto-Bismol) Previous Rx's Medication Instructions Recorded cyclobenzaprine 10 mg tablet 10 mg PO BID PRN muscle spasm #10 02/04/20 tabs lidocaine 5 % topical patch 1 patch topical DAILY #30 ea 02/04/20 amoxicillin 875 mg tablet 875 mg PO BID #14 tabs 02/17/21 cephalexin 500 mg capsule 500 mg PO QID #20 caps 06/01/21 bismuth subsalicylate 262 mg/15 mL 524 mg (30 mL) PO Q30M PRN 08/02/22 oral suspension (Pepto-Bismol) diarrhea #250 mL cephalexin 500 mg capsule 500 mg PO QID 7 days #28 caps 08/02/22 omeprazole 20 mg tablet,delayed 20 mg PO DAILY #30 tabs 08/02/22 release Allergies Allergy/AdvReac Type Severity Reaction Status Date / Time No Known Drug Allergies Allergy Verified 05/26/21 21:58 Review of Systems <KAROLINA Galindo - Last Filed: 08/02/22 19:32> Review of Systems Narrative: Review of systems is negative for acute abnormalities unless otherwise noted in HPI Patient History <KAROLINA Galindo - Last Filed: 08/02/22 19:32> Medical History (Updated 08/02/22 @ 15:34 by KAROLINA Galindo) No acute medical problems Surgical History No pertinent past surgical history Social History Smoking Status: Never smoker Smoking Status: Never smoker alcohol intake frequency: holidays/special occasions only Substance Use Type: does not use Exam <KAROLINA Galindo - Last Filed: 08/02/22 19:32> Narrative Exam Narrative: Reviewed vitals signs and nursing notes. General: cooperative, comfortable, in no acute distress, well groomed HEENT: symmetrical facial expressions, moist mucous membranes Cardiovascular: regular rate and rhythm, no peripheral edema, warm extremities Respiratory: normal effort, able to speak in complete sentences, without wheezing, stridor, or abnormal breath sounds. No retractions or tachypnea. GI: abdomen soft, , nondistended, without masses, rebound tenderness or exquisite tenderness with exam. Mild tenderness to right upper quadrant no other tenderness MSK: moves all extremities, neurovascularly intact, no weakness, normal tone Skin: brisk capillary refill, without pallor or erythema Neuro: normal speech and cognition, A&O x3, ambulatory, clear speech Psych: mental status is grossly normal, congruent mood, normal affect, pleasant and cooperative Initial Vital Signs Initial Vital Signs: Vital Signs Temperature 98.5 F 08/02/22 12:07 Pulse Rate 93 H 08/02/22 12:07 Respiratory Rate 22 09/21/22 12:07 Blood Pressure 119/86 08/02/22 12:07 Pulse Oximetry 100 08/02/22 12:07 Oxygen Delivery Method 08/02/22 12:07 <Naomie Armenta MD - Last Filed: 08/05/22 07:08> Initial Vital Signs Initial Vital Signs: Vital Signs Temperature 98.5 F 08/02/22 12:07 Pulse Rate 93 H 08/02/22 12:07 Respiratory Rate 22 08/02/22 12:07 Blood Pressure 119/86 08/02/22 12:07 Pulse Oximetry 100 08/02/22 12:07 Oxygen Delivery Method 08/02/22 12:07 Course <KAROLINA Galindo - Last Filed: 08/02/22 19:32> Orders Ordered: Discontinued Medications Cephalexin HCl (Cephalexin 250 Mg Capsule) 500 mg PO NOW ONE Stop: 08/02/22 15:28 Al Hydrox/Mg Hydrox/Simethicone 20 ml/ Lidocaine HCl 15 ml 0 ml PO NOW ONE Stop: 08/02/22 15:28 Pantoprazole Sodium (Pantoprazole 40 Mg Vial) 20 mg IV NOW ONE Stop: 08/02/22 15:28 Vital Signs Vital signs: Vital Signs - 8 hr 08/02/22 12:07 08/02/22 12:13 08/02/22 12:14 Temperature 98.5 F Pulse Rate 93 H 72 Respiratory Rate 22 Blood Pressure 119/86 Pulse Oximetry 100 96 98 Oxygen Delivery Method Room Air 08/02/22 12:14 08/02/22 12:30 08/02/22 13:00 Temperature Pulse Rate 66 71 Respiratory Rate 17 22 Blood Pressure 140/81 Pulse Oximetry 96 96 Oxygen Delivery Method 08/02/22 13:30 08/02/22 13:57 08/02/22 13:57 Temperature Pulse Rate 69 67 Respiratory Rate 19 19 Blood Pressure 135/73 Pulse Oximetry 96 97 Oxygen Delivery Method 08/02/22 14:00 08/02/22 14:00 08/02/22 14:30 Temperature Pulse Rate 58 L 70 Respiratory Rate 12 18 Blood Pressure 134/67 Pulse Oximetry 97 95 Oxygen Delivery Method 08/02/22 14:31 08/02/22 14:31 08/02/22 15:00 Temperature Pulse Rate 60 79 Respiratory Rate 17 15 Blood Pressure 122/70 Pulse Oximetry 97 97 Oxygen Delivery Method 08/02/22 15:01 08/02/22 15:01 Temperature Pulse Rate 58 L Respiratory Rate 15 Blood Pressure 126/56 L Pulse Oximetry 97 Oxygen Delivery Method <Naomie Armenta MD - Last Filed: 08/05/22 07:08> Orders Ordered: Discontinued Medications Cephalexin HCl (Cephalexin 250 Mg Capsule) 500 mg PO NOW ONE Stop: 08/02/22 15:28 Al Hydrox/Mg Hydrox/Simethicone 20 ml/ Lidocaine HCl 15 ml 0 ml PO NOW ONE Stop: 08/02/22 15:28 Pantoprazole Sodium (Pantoprazole 40 Mg Vial) 20 mg IV NOW ONE Stop: 08/02/22 15:28 Vital Signs Vital signs: Vital Signs - 8 hr 08/02/22 12:07 08/02/22 12:13 08/02/22 12:14 Temperature 98.5 F Pulse Rate 93 H 72 Respiratory Rate 22 Blood Pressure 119/86 Pulse Oximetry 100 96 98 Oxygen Delivery Method Room Air 08/02/22 12:14 08/02/22 12:30 08/02/22 13:00 Temperature Pulse Rate 66 71 Respiratory Rate 17 22 Blood Pressure 140/81 Pulse Oximetry 96 96 Oxygen Delivery Method 08/02/22 13:30 08/02/22 13:57 08/02/22 13:57 Temperature Pulse Rate 69 67 Respiratory Rate 19 19 Blood Pressure 135/73 Pulse Oximetry 96 97 Oxygen Delivery Method 08/02/22 14:00 08/02/22 14:00 08/02/22 14:30 Temperature Pulse Rate 58 L 70 Respiratory Rate 12 18 Blood Pressure 134/67 Pulse Oximetry 97 95 Oxygen Delivery Method 08/02/22 14:31 08/02/22 14:31 08/02/22 15:00 Temperature Pulse Rate 60 79 Respiratory Rate 17 15 Blood Pressure 122/70 Pulse Oximetry 97 97 Oxygen Delivery Method 08/02/22 15:01 08/02/22 15:01 Temperature Pulse Rate 58 L Respiratory Rate 15 Blood Pressure 126/56 L Pulse Oximetry 97 Oxygen Delivery Method MDM - Chest Pain <KAROLINA Galindo - Last Filed: 08/02/22 19:32> Lab Data Result diagrams: 08/02/22 12:43 08/02/22 12:43 Labs: Lab Results 08/02/22 08/02/22 08/02/22 Range/Units 12:43 12:43 12:43 WBC 5.5 (4.5-11.0) X10^3/uL RBC 5.52 (4.5-5.9) X10^6/uL Hgb 14.9 (13.5-17.5) g/dL Hct 43.8 (41-53) % MCV 79.3 L (80-100) fL MCH 27.0 (26-34) PG MCHC 34.1 (30-36) % RDW 13.8 (11.6-14.8) % Plt Count 184 (150-400) X10^3/uL Neut % (Auto) 58.5 (50-75) % Lymph % (Auto) 28.2 (25-40) % [place] % (Auto) 11.0 (3-14) % Eos % (Auto) 1.2 L (2-4) % Baso % (Auto) 1.1 (0-2) % Neut # (Auto) 3200 (4994-2650) /uL Lymph # (Auto) 1600 (1606-4784) /uL [place] # (Auto) 600 (0-900) /uL Eos # (Auto) 100 (0-450) /uL Baso # (Auto) 100 (0-100) /uL Sodium 140 (137-145) mmol/L Potassium 4.3 (3.4-5.1) mmol/L Chloride 106 (98-107) mmol/L Carbon Dioxide 26 (22-32) mmol/L BUN 14 (9-20) mg/dL Creatinine 0.66 (0.66-1.25) mg/dL Estimated GFR > 60 (>60) mL/min BUN/Creatinine Ratio 21.2 (6-22) Glucose 99 (70-100) mg/dL Calcium 9.4 (8.4-10.2) mg/dL Magnesium 2.0 (1.6-2.3) mg/dL Total Bilirubin 0.6 (0.2-1.3) mg/dL AST 41 (17-59) IU/L ALT 69 H (<50) IU/L Alkaline Phosphatase 52 (38-126) U/L Total Creatine Kinase 70 (55-170) U/L CK-MB (CK-2) TNP CK-MB (CK-2) Rel Index TNP Troponin I < 0.012 (0.01-0.034) ng/mL Total Protein 7.9 (6.3-8.2) g/dL Albumin 4.5 (3.5-5.0) g/dL Globulin 3.4 (1.7-4.1) g/dL Albumin/Globulin Ratio 1.3 (1.0-2.8) Lipase 36 (23-300) U/L Procalcitonin 0.05 (<0.5) ng/mL Urine Color Urine Appearance Urine pH (4.5-8.0) Ur Specific [place] (1.000-1.035) Urine Protein (Negative) Urine Glucose (UA) (Negative) g/dL Urine Ketones (NEGATIVE) Urine Occult Blood (Negative) Urine Nitrate (Negative) Urine Bilirubin (NEGATIVE) Urine Urobilinogen (0.2) E.U./dL Ur Leukocyte Esterase (NEGATIVE) Urine RBC (0-5/HPF) Urine WBC (0-5/HPF) Urine Bacteria (None) Urine Mucus (Negative) Ur Culture Indicated? SARS-CoV-2 (PCR) (Negative) 08/02/22 08/02/22 Range/Units 13:15 13:55 WBC (4.5-11.0) X10^3/uL RBC (4.5-5.9) X10^6/uL Hgb (13.5-17.5) g/dL Hct (41-53) % MCV (80-100) fL MCH (26-34) PG MCHC (30-36) % RDW (11.6-14.8) % Plt Count (150-400) X10^3/uL Neut % (Auto) (50-75) % Lymph % (Auto) (25-40) % [place] % (Auto) (3-14) % Eos % (Auto) (2-4) % Baso % (Auto) (0-2) % Neut # (Auto) (7200-2743) /uL Lymph # (Auto) (3197-3606) /uL [place] # (Auto) (0-900) /uL Eos # (Auto) (0-450) /uL Baso # (Auto) (0-100) /uL Sodium (137-145) mmol/L Potassium (3.4-5.1) mmol/L Chloride (98-107) mmol/L Carbon Dioxide (22-32) mmol/L BUN (9-20) mg/dL Creatinine (0.66-1.25) mg/dL Estimated GFR (>60) mL/min BUN/Creatinine Ratio (6-22) Glucose (70-100) mg/dL Calcium (8.4-10.2) mg/dL Magnesium (1.6-2.3) mg/dL Total Bilirubin (0.2-1.3) mg/dL AST (17-59) IU/L ALT (<50) IU/L Alkaline Phosphatase (38-126) U/L Total Creatine Kinase (55-170) U/L CK-MB (CK-2) CK-MB (CK-2) Rel Index Troponin I (0.01-0.034) ng/mL Total Protein (6.3-8.2) g/dL Albumin (3.5-5.0) g/dL Globulin (1.7-4.1) g/dL Albumin/Globulin Ratio (1.0-2.8) Lipase (23-300) U/L Procalcitonin (<0.5) ng/mL Urine Color Yellow Urine Appearance Clear Urine pH 7.0 (4.5-8.0) Ur Specific [place] 1.015 (1.000-1.035) Urine Protein Trace H (Negative) Urine Glucose (UA) Negative (Negative) g/dL Urine Ketones Negative (NEGATIVE) Urine Occult Blood Negative (Negative) Urine Nitrate Negative (Negative) Urine Bilirubin Negative (NEGATIVE) Urine Urobilinogen 0.2 (0.2) E.U./dL Ur Leukocyte Esterase Negative (NEGATIVE) Urine RBC None seen (0-5/HPF) Urine WBC 0-1/hpf (0-5/HPF) Urine Bacteria Few (2-10) H (None) Urine Mucus 2+ H (Negative) Ur Culture Indicated? Cult not indicated SARS-CoV-2 (PCR) Negative (Negative) Imaging Data Chest x-ray: Radiologist's Impression: PROCEDURE:? XR CHEST 1V ? INDICATIONS:? chest pain ? TECHNIQUE:? One view of the chest was acquired.? ? COMPARISON:? [facility], NATE, XR CHEST 1V, 03/17/2022, 21:01.? [facility], CR, XR CHEST 1V, 05/26/2021, 22:42. ? FINDINGS:? ? Surgical changes and devices:? None.? ? Lungs and pleura:? Lungs are clear.? No pleural effusions or pneumothorax.? ? Mediastinum:? Mediastinal contours appear normal.? Heart size is normal.? ? Bones and chest wall:? No suspicious bony lesions.? Overlying soft tissues appear unremarkable.? ? IMPRESSION:? No acute cardiopulmonary abnormality. ? ? Dictated by: Fredo Hu M.D. on 08/02/2022 at 12:59 ? ? Approved by: Fredo Hu M.D. on 08/02/2022 at 13:04 ? US - abdomen: Radiologist's Impression: PROCEDURE:? US ABDOMEN LIMITED ? INDICATIONS:? CHEST PAIN ? TECHNIQUE:? Real-time scanning was performed of the abdominal and retroperitoneal organs, with image documentation.? ? COMPARISON:? None. ? FINDINGS: ? Liver:? Hepatic parenchyma shows diffuse increased echogenicity consistent with fatty infiltration. ? Gallbladder:? Sonolucent without cholelithiasis.? No gallbladder wall thickening. No pericholecystic fluid or Marino's sign. ? Common Bile Duct:? 7.4 mm. ? Pancreas:? Unremarkable as visualized ?? ? IMPRESSION: ? 1. No evidence of cholelithiasis or acute cholecystitis. ? 2. Appendix fatty infiltration ? 3. Prominent CBD at 7.4 mm.? Nonemergent follow-up MRCP could be considered. ?? ? Approved by: Gal Valdovinos M.D. on 08/02/2022 at 14:20? ECG Data Interpretation: EKG independently reviewed by myself at [1222] reveals normal sinus rhythm a 61 bpm with regular axis and intervals. No STEMI, ST segment changes, arrhythmia, or acute ischemic changes. MDM Narrative Medical decision making narrative: This is a 22-year-old male presents to the emergency department complaining of palpitations yesterday, right upper quadrant tenderness and not eating yesterday and epigastric pain. He denies fever chills, states that his chest felt heavy and that is why he came in today. He denies any wheezing or difficulty breathing, denies any shortness of breath or radiation of pain. He states that his chest only feels heavy. Had COVID 3 weeks ago. Denies any history of gal lstones but had mild tenderness to the right upper quadrant with palpation and states that he had loose stool, nausea and did not eat yesterday due to these feelings. Ultrasound of his right upper quadrant shows common bile duct dilatation at 7.4 mm, fatty infiltration of the liver and appendix, no evidence of cholelithiasis or acute cholecystitis. Patient's chest x-ray is without any acute cardiopulmonary findings. Patient's lab work overall is reassuring, no leukocytosis or anemia, no electrolyte abnormalities, ALT is mildly elevated at 69 without any other elevation of liver enzymes, his troponin is 0.0 1 2, procalcitonin 0.05 with a lipase of 36, patient's UA shows a trace of protein, few bacteria on microscopy with 2+ mucus. Patient states that he had right sided groin pain 2 days ago, states that he is circumcised and denies urinary urgency or frequency. His urine was sent for culture, his COVID PCR was negative. Patient does not have any EKG changes, vital signs are stable, he was treated for acute cystitis with cephalexin q.i.d. x7 days, he was also given prescription of omeprazole and encouraged to avoid fatty foods, stay hydrated, take Tylenol as needed for pain and he was given bismuth. Patient is appropriate and amenable to discharge home. Vital signs are stable on repeat examination is unremarkable. Patient has been informed of results. Patient has been given strict return to ER precautions for any new or worsening symptoms. Patient understands to follow up closely with outpatient providers as instructed. Patient understands plan and agrees to discharge home. All questions and concerns answered at this time. <Naomie Armenta MD - Last Filed: 08/05/22 07:08> Lab Data Labs: Lab Results 08/02/22 08/02/22 08/02/22 Range/Units 12:43 12:43 12:43 WBC 5.5 (4.5-11.0) X10^3/uL RBC 5.52 (4.5-5.9) X10^6/uL Hgb 14.9 (13.5-17.5) g/dL Hct 43.8 (41-53) % MCV 79.3 L (80-100) fL MCH 27.0 (26-34) PG MCHC 34.1 (30-36) % RDW 13.8 (11.6-14.8) % Plt Count 184 (150-400) X10^3/uL Neut % (Auto) 58.5 (50-75) % Lymph % (Auto) 28.2 (25-40) % [place] % (Auto) 11.0 (3-14) % Eos % (Auto) 1.2 L (2-4) % Baso % (Auto) 1.1 (0-2) % Neut # (Auto) 3200 (7084-7196) /uL Lymph # (Auto) 1600 (1886-0923) /uL [place] # (Auto) 600 (0-900) /uL Eos # (Auto) 100 (0-450) /uL Baso # (Auto) 100 (0-100) /uL Sodium 140 (137-145) mmol/L Potassium 4.3 (3.4-5.1) mmol/L Chloride 106 (98-107) mmol/L Carbon Dioxide 26 (22-32) mmol/L BUN 14 (9-20) mg/dL Creatinine 0.66 (0.66-1.25) mg/dL Estimated GFR > 60 (>60) mL/min BUN/Creatinine Ratio 21.2 (6-22) Glucose 99 (70-100) mg/dL Calcium 9.4 (8.4-10.2) mg/dL Magnesium 2.0 (1.6-2.3) mg/dL Total Bilirubin 0.6 (0.2-1.3) mg/dL AST 41 (17-59) IU/L ALT 69 H (<50) IU/L Alkaline Phosphatase 52 (38-126) U/L Total Creatine Kinase 70 (55-170) U/L CK-MB (CK-2) TNP CK-MB (CK-2) Rel Index TNP Troponin I < 0.012 (0.01-0.034) ng/mL Total Protein 7.9 (6.3-8.2) g/dL Albumin 4.5 (3.5-5.0) g/dL Globulin 3.4 (1.7-4.1) g/dL Albumin/Globulin Ratio 1.3 (1.0-2.8) Lipase 36 (23-300) U/L Procalcitonin 0.05 (<0.5) ng/mL Urine Color Urine Appearance Urine pH (4.5-8.0) Ur Specific [place] (1.000-1.035) Urine Protein (Negative) Urine Glucose (UA) (Negative) g/dL Urine Ketones (NEGATIVE) Urine Occult Blood (Negative) Urine Nitrate (Negative) Urine Bilirubin (NEGATIVE) Urine Urobilinogen (0.2) E.U./dL Ur Leukocyte Esterase (NEGATIVE) Urine RBC (0-5/HPF) Urine WBC (0-5/HPF) Urine Bacteria (None) Urine Mucus (Negative) Ur Culture Indicated? SARS-CoV-2 (PCR) (Negative) 08/02/22 08/02/22 Range/Units 13:15 13:55 WBC (4.5-11.0) X10^3/uL RBC (4.5-5.9) X10^6/uL Hgb (13.5-17.5) g/dL Hct (41-53) % MCV (80-100) fL MCH (26-34) PG MCHC (30-36) % RDW (11.6-14.8) % Plt Count (150-400) X10^3/uL Neut % (Auto) (50-75) % Lymph % (Auto) (25-40) % [place] % (Auto) (3-14) % Eos % (Auto) (2-4) % Baso % (Auto) (0-2) % Neut # (Auto) (6685-6486) /uL Lymph # (Auto) (6855-3011) /uL [place] # (Auto) (0-900) /uL Eos # (Auto) (0-450) /uL Baso # (Auto) (0-100) /uL Sodium (137-145) mmol/L Potassium (3.4-5.1) mmol/L Chloride (98-107) mmol/L Carbon Dioxide (22-32) mmol/L BUN (9-20) mg/dL Creatinine (0.66-1.25) mg/dL Estimated GFR (>60) mL/min BUN/Creatinine Ratio (6-22) Glucose (70-100) mg/dL Calcium (8.4-10.2) mg/dL Magnesium (1.6-2.3) mg/dL Total Bilirubin (0.2-1.3) mg/dL AST (17-59) IU/L ALT (<50) IU/L Alkaline Phosphatase (38-126) U/L Total Creatine Kinase (55-170) U/L CK-MB (CK-2) CK-MB (CK-2) Rel Index Troponin I (0.01-0.034) ng/mL Total Protein (6.3-8.2) g/dL Albumin (3.5-5.0) g/dL Globulin (1.7-4.1) g/dL Albumin/Globulin Ratio (1.0-2.8) Lipase (23-300) U/L Procalcitonin (<0.5) ng/mL Urine Color Yellow Urine Appearance Clear Urine pH 7.0 (4.5-8.0) Ur Specific [place] 1.015 (1.000-1.035) Urine Protein Trace H (Negative) Urine Glucose (UA) Negative (Negative) g/dL Urine Ketones Negative (NEGATIVE) Urine Occult Blood Negative (Negative) Urine Nitrate Negative (Negative) Urine Bilirubin Negative (NEGATIVE) Urine Urobilinogen 0.2 (0.2) E.U./dL Ur Leukocyte Esterase Negative (NEGATIVE) Urine RBC None seen (0-5/HPF) Urine WBC 0-1/hpf (0-5/HPF) Urine Bacteria Few (2-10) H (None) Urine Mucus 2+ H (Negative) Ur Culture Indicated? Cult not indicated SARS-CoV-2 (PCR) Negative (Negative) Discharge Plan Departure Patient Disposition: Home Clinical Impression: Palpitations, Pressure in chest, Common bile duct dilation Acute cystitis Qualifiers: Hematuria presence: without hematuria Qualified Code(s): N30.00 - Acute cystitis without hematuria Instructions: Eating a Diet Low in Saturated Fat, Trans Fat, and Cholesterol, Gallstones, Acute Cystitis, DI for Atypical Chest Pain, DI for Epigastric Pain, DI for Palpitations Activity Restrictions/Additional Instructions: *You have been diagnosed with chest pressure, lightheadedness, and symptoms consistent with dehydration. The chest pressure you may be feeling sounds suspicious for GERD or possibly gastric ulcer. Your ultrasound does not show a ny signs of cholecystitis or an infected gallbladder. Please call the number in bold below and asked to establish care with 1 of the primary care providers. Please set up an appointment at that time for follow-up from the emergency department today about your symptoms. Your urine showed some bacteria in it and I would like to treat it with Keflex this antibiotic is 4 times a day for the next 7 days. Please take omeprazole 1st thing in the morning each day, if you have nausea or feeling like you did before, please use Pepto Bismol. Thank you for trusting us with your care, I do not think that this is cardiac in nature and you do not have any other abnormal findings on your workup today. Please come back for another evaluation if this is worsening. *What to do: *Please continue to take your regular medications as directed. [ x] New medication prescriptions sent to your pharmacy: [ [facility]] [ ] New medication written as a paper prescription [ ] No new medications given *Please follow up with your primary care provider in 2-3 days, call for an appointment. Let them know you were seen in the Emergency Department and that we asked that you be seen for follow-up. We will electronically transmit a record of today's note if your PCP is in our system *If you do not have a primary care provider please contact [phone] to establish care with one of the [facility] primary care providers. *Return to Emergency Department if you should have any new, worsening, or concerning symptoms, such as [fever greater than 101F, chills, worsening pain, persistent vomiting or other bothersome symptoms]. Prescriptions: New cephalexin 500 mg capsule 500 mg PO QID 7 Days Qty: 28 0RF omeprazole 20 mg tablet,delayed release (DR/EC) 20 mg PO DAILY Qty: 30 2RF bismuth subsalicylate [Pepto-Bismol] 262 mg/15 mL suspension 524 mg PO Q30M PRN (Reason: diarrhea) Qty: 250 3RF Rx Instructions: do not exceed 8 doses in a 24 hour period No Action bismuth subsalicylate [Pepto-Bismol] 262 mg/15 mL Suspension 262 mg PO Q30M PRN (Reason: Nausea) cephalexin 500 mg capsule 500 mg PO QID Qty: 20 0RF cyclobenzaprine 10 mg tablet 10 mg PO BID PRN (Reason: muscle spasm) Qty: 10 0RF lidocaine 5 % adhesive patch,medicated 1 patch TOP DAILY Qty: 30 0RF Rx Instructions: leave on most painful area for up to 12 hrs amoxicillin 875 mg tablet 875 mg PO BID Qty: 14 0RF Referrals: [facility] [Provider Group] (if ongoing upper abdominal pain for recheck) Miscellaneous,[facility] [Primary Care Provider] - Visit Report Forms: Patient Portal/API <Naomie Armenta MD - Last Filed: 08/05/22 07:08> Cosign ED Attending Cosignature Attestation: I was immediately available in the department for consultation throughout this patient's visit. I agree with documentation as above. Naomie Armenta MD
[2022-08-02 13:23] LABS: Alanine Aminotransferase 69 IU/L (<50); Albumin 4.5 g/dL (3.5-5.0); Albumin Globulin Ratio 1.3 (1.0-2.8); Alkaline Phosphatase 52 U/L (38-126); Aspartate Aminotransferase 41 IU/L (17-59); BUN Creatinine Ratio 21.2 (6-22); Bilirubin Total 0.6 mg/dL (0.2-1.3); Blood Urea Nitrogen 14 mg/dL (9-20); Calcium 9.4 mg/dL (8.4-10.2); Carbon Dioxide 26 mmol/L (22-32); Chloride 106 mmol/L (98-107); Creatine Kinase 70 U/L (55-170); Estimated Glomerular Filt Rate > 60 mL/min (>60); Globulin 3.4 g/dL (1.7-4.1); Glucose 99 mg/dL (70-100); Lipase 36 U/L (23-300); Potassium 4.3 mmol/L (3.4-5.1); Sodium 140 mmol/L (137-145); Total Protein 7.9 g/dL (6.3-8.2)
[2022-08-02 13:31] LABS: HEMOLYSIS 66 (0-50)
[2022-08-02 13:34] LABS: Troponin I < 0.012 ng/mL (0.01-0.034)
[2022-08-02 13:39] LABS: Procalcitonin 0.05 ng/mL (<0.5)
[2022-08-02 13:43] LABS: COVID19 -Nasal RAPID Negative (Negative)
[2022-08-02 14:08] LABS: Appearance Urine UA CLEAR; Bilirubin Urine UA NEGATIVE (NEGATIVE); Color Urine UA YELLOW; Glucose Urine UA NEGATIVE (Negative); Ketones Urine UA NEGATIVE (NEGATIVE); Leukocyte Esterase Urine UA NEGATIVE (NEGATIVE); Nitrite Urine UA NEGATIVE (Negative); Occult Blood Urine UA NEGATIVE (Negative); Protein Urine UA TRACE (Negative); Specific Gravity Urine UA 1.015 (1.000-1.035); Urobilinogen Urine UA 0.2 E.U./dL (0.2)
[2022-08-02 14:29] LABS: RBC Urine None Seen (0-5/HPF); WBC Urine 0-1/HPF (0-5/HPF)
[2022-08-02 14:30] LABS: Bacteria Urine Few (2-10); Culture Indicated Urine Cult Not Indicated; Mucus Urine 2+ (Negative)
== END 2022-08-02 15:29 | disposition home or self-care (01) ==
PROVIDERS: Emergency Medicine; Emergency Provider Nurse Practitioner Critical Care Medicine
DX: R00.2 Palpitations (principal); R10.11 Right upper quadrant pain; R07.9 Chest pain, unspecified; N30.00 Acute cystitis without hematuria; K83.8 Other specified diseases of biliary tract; Z20.822 Contact with and (suspected) exposure to COVID-19
CPT/HCPCS: 36415; 71045; 76705; 80053; 81001; 82550; 83690; 83735; 84145; 84484; 85025; 87086; 87635; 93005; 93010; 99283; 99284; C9803